=== PATIENT | female | born 1960 | race Caucasian/White ===

== ENCOUNTER 2018-03-17 16:04 | Emergency (ER) | payer BC ==
[~2018-03-17] VITALS: Ht 149.9 cm; Wt 49.6 kg
[2018-03-17 16:16] VITALS: BP 137/53
== END 2018-03-17 16:56 | disposition home or self-care (01) ==
LOC: ED 16:04
DX: S00.83XA Contusion of other part of head, initial encounter (principal); K21.9 Gastro-esophageal reflux disease without esophagitis; G43.909 Migraine, unspecified, not intractable, without status migrainosus; E78.00 Pure hypercholesterolemia, unspecified; Z88.2 Allergy status to sulfonamides; W22.8XXA Striking against or struck by other objects, initial encounter; Y93.E1 Activity, personal bathing and showering; Y92.091 Bathroom in other non-institutional residence as the place of occurrence of the external cause; Y99.8 Other external cause status
CPT/HCPCS: J1885